=== PATIENT | male | born 1965 | race Caucasian/White ===

== ENCOUNTER 2023-05-29 11:22 | Outpatient (AMB) | payer OTHER, SELFPAY ==
[2023-05-29 11:23] VITALS: BP 100/62; PULSE 67; O2SAT 99; BMI 24.7
--- NOTE | 2023-05-29 11:23 | MHC.PC.OV ---
Vital Signs 05/29/23 11:23 Height 5 ft 8.5 in Weight 165 lb BMI 24.7 BP 100/62 Blood Pressure Location Lt brachial Position Sitting Pulse 67 Pulse Source Pulse Oximeter Pulse Oximetry (%) 99 Oxygen Delivery Method Room Air Intake Visit Reasons: pt requesting physical exam; pain in arm Finish Mixer Required: Yes Senior Training And Development Rep: Not Required per policy Accompanied by: Self / Same As Patient Allergies No Known Allergies Allergy (Verified 05/29/23 11:24) Medication List - Last Reconciled 05/29/23 by Mango Delgadillo MD No Known Home Meds Tobacco use date assessed: 05/29/23 Dental Screening Dental Screen Date: 05/29/23 Did you have a dental visit in the last 12 months?: Yes Did you have a dental problem in the last 6 months where you did not have access to dental care?: No Was dental information given to patient?: Patient has dentist HPI pt requesting physical exam; pain in arm HPI Details 57-year-old male coming in for the 1st time to be seen. Noted on the last blood work have elevated liver function test. Estuardo son interpret. R shoulder pain- deny fall or trauma- 2 years , rash on the L hand also PFSH Medical History Polysubstance abuse Social History (Updated 05/29/23 @ 12:22 by Mango Delgadillo MD) Housing: House Alcohol intake: current Patient Tobacco Use Status: Former Tobacco user Years Smoked: 1999 quit e-Cigarette/Vaping Use: Never Used Current occupational status: employed Cognitive needs: No Hearing needs: No Vision needs: No Questionnaire PHQ-9 Over the last 2 weeks, how often have you been bothered by any of the following problems? 1. Little interest or pleasure in doing things: not at all 2. Feeling down, depressed, or hopeless: not at all 3. Trouble falling or staying asleep, or sleeping too much: not at all 4. Feeling tired or having little energy: not at all 5. Poor appetite or overeating: not at all 6. Feeling bad about yourself - or that you are a failure or have let yourself or your family down: not at all 7. Trouble concentrating on things, such as reading the newspaper or watching television: not at all 8. Moving or speaking so slowly that other people could have noticed. Or the opposite - being so fidgety or restless that you have been moving around a lot more than usual: not at all 9. Thoughts that you would be better off or of hurting yourself in some way: not at all Total score: 0 Source: Developed by Drs. Keith Ortez, Agata Cortes, Cedric Walker and colleagues, with an educational nancy from [employer]. Thrive Questionnaire Date Thrive assessed: 05/29/23 I am a: Patient What is your living situation today?: I have a steady place to live Within the past 12 months, did the food you bought not last and you didn't have the money to get more?: Never true Within the past 12 months, did you worry whether your food would run out before you got money to buy more?: Never true Do you have trouble paying for medicines?: No Do you have trouble getting transportation to medical appointments?: No Do you have trouble paying your heating and electricity bill?: No Do you have trouble taking care of your child, family member or friend?: No Do you have trouble with day-to-day activities such as bathing, preparing meals, shopping, managing finances, etc.?: No Are you currently unemployed and looking for a job?: No Are you interested in more education?: No Please select the resources that you would like help with: None AUDIT C Alcohol Use Questionnaire (AUDIT-C) 1. How often do you have a drink containing alcohol?: Never Total Score: 0 DENNISE-7 AMB Questionnaire DENNISE-7 Date DENNISE - 7 assessed: 05/29/23 Feeling nervous, anxious, or on edge: 2 = More than half the days Not being able to stop or control worryin = More than half the days Worrying too much about different things: 2 = More than half the days Trouble relaxin = More than half the days Being so restless that it is hard to sit still: 2 = More than half the days Becoming easily annoyed or irritable: 0 = Not at all Feeling afraid as if something awful might happen: 0 = Not at all Total DENNISE-7 score (0-4 normal; 5-9 mild; 10-14 moderate; 15-21 severe): 10 Source: Developed by Drs. Keith Ortez, Agata Cortes, Cedric Walker and colleagues, with an educational nancy from [employer]. Review of Systems Const Denies poor appetite and Denies weakness Eyes Denies no additional complaints ENT Reports Normal hearing present, Denies dizziness, Denies nasal congestion, Denies tinnitus and Denies sore throat Card Denies chest pain, Denies syncope, Denies rapid heart rate and Denies dyspnea Resp Denies cough and Denies dyspnea GI Denies change in stool character, Reports constipation, Denies diarrhea, Denies nausea and Denies vomiting Denies dysuria and Denies urinary frequency Neuro Reports Normal hearing present, Denies confusion, Denies dizziness, Denies syncope and Denies weakness Psych Denies confusion Physical exam (Primary Care) Vital Signs: Last Vital Signs Pulse 67 05/29/23 11:23 BP 100/62 05/29/23 11:23 Pulse Ox 99 05/29/23 11:23 Oxygen Delivery Method Room Air 05/29/23 11:23 Tobacco/Smoking Status: Tobacco use Status Tobacco use date assessed 05/29/23 05/29/23 11:35 Patient Tobacco Use Status Never used Tobacco 05/29/23 11:35 e-Cigarette/Vaping Use Never Used 05/29/23 11:35 PHQ-9: PHQ-9 Score PHQ-9: Total score 0 05/29/23 11:35 Thrive Assessment: Date of Thrive Assessment Date Thrive assessed 05/29/23 05/29/23 11:35 Const General: No confusion Orientation/consciousness: No confusion HENMT Other: Bilateral impacted cerumen Head: Yes normocephalic Ears: external ears normal Face and sinus: Yes normal facial exam Mouth: moist mucous membranes Throat: Yes tonsils normal Eyes Conjunctivae: conjunctivae normal Pupils: Equal, round and reactive pupils present and Pupil accommodation reflex normal Direct Ophthalmoscopy: normal light reflex Neck Neck: No lymphadenopathy Thyroid: Thyroid normal Chest Other: Elevation of the right arm limited to 75 degrees no swelling no redness no tenderness on palpation. Chest palpation & inspection: normal inspection of the chest Resp Effort & Inspection: normal respiratory effort and no audible wheezes Auscultation: clear to auscultation bilaterally, no crackles, no wheezes and lung sounds not diminished Cardio Rate: regular rate Rhythm: regular rhythm Peripheral pulses: radial pulses present and dorsalis pedis present GI Other: Guaiac negative stools with normal prostate Palpation (GI): no masses Auscultation: normal bowel sounds and normoactive bowel sounds Male General Exam: Yes normal external exam Skin Other: Left foot interdigital area of the 4th and 5th toe has desquamation with erythema and did skin around 5 cm x 3 cm Neuro General: No confusion Cranial nerves: Yes Equal, round and reactive pupils present and Yes Normal hearing present Cognition (Neuro): normal cognition Gait exam (Neuro): Normal gait present Motor exam (neuro): 5/5 motor strength present throughout Deep tendon reflexes (DTR's): Right brachioradialis reflex intensity grade: 2+, Left brachioradialis reflex intensity grade: 2+, Right patellar reflex intensity grade: 2+ and Left patellar reflex intensity grade: 2+ Extrem General: No edema Assessment and Plan Assessment & Plan (1) Annual physical exam: Code(s): Z00.00 - Encounter for general adult medical examination without abnormal findings (2) Hepatitis C antibody positive in blood: Comment: 2003 Code(s): R76.8 - Other specified abnormal immunological findings in serum (3) Overweight (BMI 25.0-29.9): Code(s): E66.3 - Overweight (4) Generalized anxiety disorder: Code(s): F41.1 - Generalized anxiety disorder (5) Colon cancer screening: Code(s): Z12.11 - Encounter for screening for malignant neoplasm of colon (6) Hand eczema: Code(s): L30.9 - Dermatitis, unspecified (7) Right shoulder pain: Code(s): M25.511 - Pain in right shoulder (8) Cellulitis of left foot: Code(s): L03.116 - Cellulitis of left lower limb (9) Impacted cerumen of both ears: Code(s): H61.23 - Impacted cerumen, bilateral Plan: Schedule for irrigation Orders: Orders Hepatitis B Profile Today R76.8 - Other specified abnormal immunological findings in serum Hepatitis C Antibody Today R76.8 - Other specified abnormal immunological findings in serum Hepatitis C Antibody Reflex Today R76.8 - Other specified abnormal immunological findings in serum Hepatitis C Genotype Today R76.8 - Other specified abnormal immunological findings in serum Hepatitis C Viral Load Today R76.8 - Other specified abnormal immunological findings in serum Complete Blood Count Auto Diff Today R76.8 - Other specified abnormal immunological findings in serum Comprehensive Met. Panel Today R76.8 - Other specified abnormal immunological findings in serum Free T4 (Free Thyroxine) Today R76.8 - Other specified abnormal immunological findings in serum Lipid Panel Today E78.00 - Pure hypercholesterolemia, unspecified, R76.8 - Other specified abnormal immunological findings in serum Thyroid Stimulating Hormone Today R76.8 - Other specified abnormal immunological findings in serum XR shoulder RT 1V Today M25.511 - Pain in right shoulder US abdomen complete Today R76.8 - Other specified abnormal immunological findings in serum, R79.89 - Other specified abnormal findings of blood chemistry Vitamin B12 and Folate Today R76.8 - Other specified abnormal immunological findings in serum Prostate Specific Antigen Scr Today R76.8 - Other specified abnormal immunological findings in serum Referrals Gastroenterology Referral Z12.11 - Encounter for screening for malignant neoplasm of colon Medications: New clotrimazole-betamethasone 1-0.05 % 1 appl topical BID 1 week 45 grams 0RF L03.116 - Cellulitis of left lower limb amoxicillin-pot clavulanate 875-125 mg 1 tab PO BID 14 tabs 0RF L03.116 - Cellulitis of left lower limb triamcinolone acetonide 0.5% 1 appl topical BID 30 grams 0RF L30.9 - Dermatitis, unspecified Coding Level of Care Code New Pt Prev Care 40-64y(13080) Diagnoses Annual physical exam Z00.00 Hepatitis C antibody positive in blood R76.8 Overweight (BMI 25.0-29.9) E66.3 Generalized anxiety disorder F41.1 Colon cancer screening Z12.11 Hand eczema L30.9 Right shoulder pain M25.511 Cellulitis of left foot L03.116 Impacted cerumen of both ears H61.23
== END 2023-05-29 12:54 | disposition home or self-care (01) ==
PROVIDERS: PCP Internal Medicine; Visit Provider Internal Medicine
DX: Z00.00 Encounter for general adult medical examination without abnormal findings (principal); R76.8 Other specified abnormal immunological findings in serum; E66.3 Overweight; F41.1 Generalized anxiety disorder; Z12.11 Encounter for screening for malignant neoplasm of colon; L30.9 Dermatitis, unspecified; M25.511 Pain in right shoulder; L03.116 Cellulitis of left lower limb; H61.23 Impacted cerumen, bilateral
CPT/HCPCS: 99386

== ENCOUNTER 2023-06-03 12:03 | Outpatient (REF) | payer OTHER, SELFPAY ==
--- NOTE | ~2023-06-03 | XR_ITS ---
EXAMINATION: XR SHOULDER, RIGHT CLINICAL INFORMATION: Pain COMPARISON: None available. TECHNIQUE: AP external rotation, Grashey, scapular Y, and axillary views of the right shoulder. FINDINGS: Spurring, sclerosis and joint space narrowing identified glenohumeral joint. Degenerative changes noted acromioclavicular joint. No fracture or dislocation. Visualized ribs and lung are unremarkable. XR/XR shoulder RT min 2V IMPRESSION: Glenohumeral and acromioclavicular degenerative changes. No acute bony pathology.
== END 2023-06-03 12:04 | disposition home or self-care (01) ==
LOC: HO.XRAY 12:03
PROVIDERS: PCP Internal Medicine; Visit Provider Internal Medicine
DX: M25.511 Pain in right shoulder (principal)
CPT/HCPCS: 73030

== ENCOUNTER 2023-06-05 09:15 | Outpatient (REF) | payer OTHER, SELFPAY ==
[2023-06-05 09:41] LABS: MANUAL DIFF FLAG NO
[2023-06-05 10:16] LABS: Basophils Percent Auto 0.4 % (0-2); Eosinophils Absolute Auto 0.3 X10*3/uL (0.0-0.4); Eosinophils Percent Auto 5.3 % (0-4); Hematocrit 35.3 % (42.0-52.0); Hemoglobin 11.9 g/dl (14.0-18.0); Imm Gran Abs Auto 0.03 X10*3/uL (0.00-0.03); Imm Gran Pct Auto 0.6 % (0.0-0.4); Lymphocytes Absolute Auto 1.5 X10*3/uL (1.2-4.9); Lymphocytes Percent Auto 31.1 % (20-40); Mean Corpuscular HGB Conc 33.7 g/dl (31.0-36.0); Mean Corpuscular Hemoglobin 32.5 pg (27.0-33.0); Mean Corpuscular Volume 96.4 fL (80.0-98.0); Monocytes Absolute Auto 0.3 X10*3/uL (0.1-1.2); Monocytes Percent Auto 6.7 % (2-11); Neutrophils Absolute Auto 2.8 x10*3/uL (2.0-8.3); Neutrophils Percent Auto 55.9 % (45-73); Red Blood Count 3.66 X10*6/uL (4.60-5.80); Red Cell Distribution Width 14.5 % (11.0-16.0)
[2023-06-05 11:09] LABS: Alanine Aminotransferase 179 U/L (0-40); Albumin Level 3.3 g/dL (3.5-5.0); Alkaline Phosphatase 116 U/L (39-117); Anion Gap 8 (12-20); Aspartate Amino Transferase 177 U/L (5-37); Bilirubin Total 1.4 mg/dL (0.0-1.0); Blood Urea Nitrogen 19 mg/dL (9-16); Calcium 9.7 mg/dL (8.4-10.2); Carbon Dioxide 28 mmol/L (22-29); Chloride 106 mmol/L (96-108); Cholesterol 130 mg/dL (<200); Estimated Glomerular Filt Rate > 60; Glucose Random 95 mg/dL (60-115); HDL Cholesterol 31 mg/dL (>40); LDL Cholesterol Calculated 82 mg/dL (<100); Potassium 4.1 mmol/L (3.3-5.1); Sodium 138 mmol/L (135-145); Total Protein 7.2 g/dL (6.5-8.0); Triglycerides 87 mg/dL (<150)
[2023-06-05 11:16] LABS: HBS Num1 0.12 mIU/mL (0-7.99); HBc Num1 0.17 S/CO (0.00-0.79); HBsAGNum1 0.29 S/CO (0.00-0.99); Hepatitis B Core Antibody Nonreactive (Nonreactive); Hepatitis B Surface Antigen Negative (Negative); ~HepC Num1 13.64 S/CO (0.00-0.79); ~Hepatitis B Surface Antibody NONREACTIVE (Nonreactive); ~Hepatitis C Antibody Reactive (Nonreactive)
[2023-06-05 11:31] LABS: Thyroid Stimulating Hormone 2.17 uIU/mL (0.32-4.0)
[2023-06-05 11:34] LABS: Folate 12.8 ng/mL (> or = 4.0); Prostate Specific Antigen Scr 0.42 ng/mL (<0.05-4.0); Vitamin B12 987 pg/mL (200-900)
[2023-06-05 12:27] LABS: Mean Platelet Volume 13.4 fL (9.4-12.4); Platelet Count 74 X10*3/uL (160-400)
[2023-06-11 14:57] LABS: HCV Genotype LiPA 1b
== END 2023-06-05 09:16 | disposition home or self-care (01) ==
LOC: HO.LAB 09:15
PROVIDERS: PCP Internal Medicine; Visit Provider Internal Medicine
DX: R76.8 Other specified abnormal immunological findings in serum (principal); E78.00 Pure hypercholesterolemia, unspecified
CPT/HCPCS: 36415; 80053; 80061; 82607; 82746; 84153; 84439; 84443; 85025; 86704; 86706; 86803; 87340; 87522; 87902

== ENCOUNTER → 2023-08-05 09:34 | Outpatient (BNVA) | payer OTHER, SELFPAY | PROVIDERS: PCP Internal Medicine; Visit Provider Physician Assistant ==

== ENCOUNTER 2023-08-05 09:35 | Outpatient (AMB) | payer OTHER, SELFPAY ==
--- NOTE | 2023-08-05 09:35 | MHC.OFFVIS ---
Intake Vital Signs 08/05/23 09:44 Height 5 ft 8 in Weight 180 lb BMI 27.4 BP 122/72 Blood Pressure Location Lt brachial Position Sitting Pulse 80 Intake Visit Reasons: HCV Intake Note: Patient new consult for HCV. Patient cc: nauseas, no appetite, fatigue, and dizziness and denies any GI issues. Network Operations Project Manager Required: Yes Network Operations Project Manager Name: Cheri [id number] x Patricia [facility] Accompanied by: Spouse Allergies No Known Allergies Allergy (Verified 05/29/23 11:24) HPI HPI Comments History of Present Illness Details Here with his A 57 y/o male referred for HCV-treatment naive He no showed appointment in June with Dr. North He arrived 1/2 late today- needs japanese interpreter DX many years ago-he has never had treatment. He has not had any GI workup. He has never had a colonoscopy or an upper endoscopy Appetite and bowels normal-he eats at least 3 times a day, In alcohol socially, special occasions only Occasional marijuana Begin to rule out review blood work noting low albumin, low platelets, elevated liver enzymes Denies nausea, vomiting, hematemesis, hematochezia fever or chills Patient suddenly became diaphoretic, pallor, weak, nausea-dizzy, transferred from chair to the exam table-with to assist- And may attempt to get BP -anxious, his is present-she reports he has had this symptom before, unable to give any specific details Dr. Trinidad consulted-into evaluate patient- [facility] Medical History Polysubstance abuse Social History Housing: House Alcohol intake: current Patient Tobacco Use Status: Former Tobacco user Years Smoked: 1999 quit e-Cigarette/Vaping Use: Never Used Substance Use Type: Marijuana Advance Directives: No Advance Directives Information Provided: No Current occupational status: employed Cognitive needs: No Hearing needs: No Vision needs: No Review of Systems Const Details: Please review H&P for this visit All systems reviewed & are unremarkable except as noted in HPI and below Denies chills, Reports fatigue and Denies fever(s) Card Denies chest pain and Denies dyspnea Resp Denies dyspnea Endo Reports fatigue Physical Exam Vital Signs: Last Vital Signs Pulse 80 08/05/23 09:44 BP 122/72 12/04/23 09:44 BMI result Body Mass Index 27.4 Const General: cooperative, diaphoretic and ill appearing Orientation/consciousness: patient oriented x3 Limitations: language barrier Resp Effort & Inspection: normal respiratory effort Auscultation: clear to auscultation bilaterally, no rhonchi and no wheezes Cardio Rate: regular rate Rhythm: regular rhythm Heart sounds: S1 normal heart sound present and S2 normal heart sound present GI Palpation (GI): Soft to palpation and nontender Auscultation: normal bowel sounds Skin General skin exam: dry skin and pallor Neuro General: patient oriented x3 Psych Appearance: well kempt Affect: Labile affect present Attitude: cooperative Results Reviewed Results Reviewed: Review June labs -HCV, low albumin-low plts- Assessment & Plan Assessment & Plan (1) Hepatitis C antibody positive in blood: Comment: Arrived alert, pallor, likely dehydrated, became diaphoretic , weak nausea- Sent to ED alert- Code(s): R76.8 - Other specified abnormal immunological findings in serum Plan: Reschedule patient when appropriate Plan ED liborio Accompanied by RN an STEFFEN-patient alert diaphoretic Coding Level of Care Code New Pt Level 5 (13467) Diagnoses Hepatitis C antibody positive in blood R76.8 Time Spent (min) 25 Comment [id number]- japanese interpreter, then in person japanese interpreter Patricia
[2023-08-05 09:44] VITALS: BP 122/72; PULSE 80; BMI 27.4
== END 2023-08-05 10:48 | disposition home or self-care (01) ==
PROVIDERS: PCP Internal Medicine; Visit Provider Physician Assistant
DX: R76.8 Other specified abnormal immunological findings in serum (principal)
CPT/HCPCS: 99202

== ENCOUNTER 2023-08-05 09:58 | Emergency (ER) | payer OTHER, SELFPAY ==
[2023-08-05 10:32] VITALS: BP 88/58; PULSE 60; RESP 16; TEMP 36.1; O2SAT 99; BMI 25.8
--- NOTE | 2023-08-05 10:40 | ECG_ITS ---
Test Reason : HYPOTENSIVE Blood Pressure : / mmHG Vent. Rate : 054 BPM Atrial Rate : 054 BPM P-R Int : 146 ms QRS Dur : 120 ms QT Int : 414 ms P-R-T Axes : 000 184 166 degrees QTc Int : 392 ms Sinus bradycardia Right superior axis deviation Non-specific intra-ventricular conduction delay Abnormal ECG When compared with ECG of 08-SEP-2014 13:48, Questionable change in QRS axis Criteria for Septal infarct are no longer Present ST no longer elevated in Lateral leads T wave inversion now evident in Lateral leads Referred By: Generic ED Physician Electronically Signed By:BI DECKER
[2023-08-05 10:57] LABS: MANUAL DIFF FLAG NO
[2023-08-05 11:08] LABS: Basophils Percent Auto 0.6 % (0-2); Eosinophils Absolute Auto 0.1 X10*3/uL (0.0-0.4); Hematocrit 34.3 % (42.0-52.0); Hemoglobin 11.6 g/dl (14.0-18.0); Imm Gran Abs Auto 0.03 X10*3/uL (0.00-0.03); Imm Gran Pct Auto 0.9 % (0.0-0.4); Lymphocytes Absolute Auto 0.7 X10*3/uL (1.2-4.9); Lymphocytes Percent Auto 21.2 % (20-40); Mean Corpuscular HGB Conc 33.8 g/dl (31.0-36.0); Mean Corpuscular Volume 97.4 fL (80.0-98.0); Mean Platelet Volume 12.9 fL (9.4-12.4); Monocytes Absolute Auto 0.3 X10*3/uL (0.1-1.2); Monocytes Percent Auto 7.9 % (2-11); Neutrophils Absolute Auto 2.2 x10*3/uL (2.0-8.3); Neutrophils Percent Auto 66.4 % (45-73); Platelet Count 72 X10*3/uL (160-400); Red Blood Count 3.52 X10*6/uL (4.60-5.80); Red Cell Distribution Width 14.4 % (11.0-16.0); White Blood Count 3.3 X10*3/uL (4.8-10.8)
[2023-08-05 11:10] LABS: Partial Thromboplastin Time 33.3 SEC (26.0-36.4)
[2023-08-05 11:12] LABS: Anion Gap 10 (12-20); Blood Urea Nitrogen 13 mg/dL (9-16); Calcium 9.2 mg/dL (8.4-10.2); Carbon Dioxide 25 mmol/L (22-29); Chloride 107 mmol/L (96-108); Creatinine Clr Calc Pharmacy 84.8; Estimated Glomerular Filt Rate > 60; Glucose Random 94 mg/dL (60-115); Potassium 3.6 mmol/L (3.3-5.1); Sodium 138 mmol/L (135-145)
[2023-08-05 11:20] LABS: Troponin-I High Sensitivity 7.1 ng/L (<3.5-35.0)
[2023-08-05 12:20] VITALS: BP 99/66; PULSE 67; RESP 16; O2SAT 100
[2023-08-05 12:47] VITALS: BP 109/72; PULSE 56; RESP 16; TEMP 36.9; O2SAT 98
--- NOTE | 2023-08-05 13:26 | ED.WEAKNESS ---
HPI - Weakness General Chief complaint: Weakness Stated complaint: low bp Time Seen by Provider: 08/05/23 12:55 Source: patient Mode of arrival: ambulatory Limitations: language barrier History of Present Illness HPI Narrative: History obtained through historic interpreter. Patient with weeks of feeling weak and wanted to have another opinion. While getting his blood drawn, he felt hot, sweaty and his blood pressure dropped but no LOC. MD Complaint: generalized weakness Onset (ago): month(s) Duration: intermittent Severity: moderate Related Data Previous Rx's Medication Instructions Recorded amoxicillin 875 mg-potassium 1 tab PO BID #14 tabs 05/29/23 clavulanate 125 mg tablet clotrimazole-betamethasone 1 1 appl topical BID 1 week #45 grams 05/29/23 %-0.05 % topical cream triamcinolone acetonide 0.5 % 1 appl topical BID #30 grams 05/29/23 topical cream Allergies Allergy/AdvReac Type Severity Reaction Status Date / Time No Known Allergies Allergy Verified 05/29/23 11:24 Review of Systems Review of Systems: Yes all other systems are reviewed and are negative Neurologic: Denies Sensory deficit (Neuro) [facility] Past Medical History Medical History Polysubstance abuse Social History Social History Housing: House Alcohol intake: current Patient Tobacco Use Status: Former Tobacco user Years Smoked: 1999 quit e-Cigarette/Vaping Use: Never Used Substance Use Type: Marijuana Advance Directives: No Advance Directives Information Provided: No Current occupational status: employed Cognitive needs: No Hearing needs: No Vision needs: No Physical Exam Vital Signs: Vital Signs: Last Vital Signs Temp 98.5 F 08/05/23 12:47 Pulse 56 08/05/23 12:47 Resp 16 08/05/23 12:47 BP 109/72 08/05/23 12:47 Pulse Ox 98 08/05/23 12:47 O2 Del Method Room Air 08/05/23 12:47 BMI result Body Mass Index 25.8 Const: General: healthy appearing Nutritional Appearance: average body habitus Orientation/consciousness: oriented to person and patient oriented x3 Limitations: no limitations HEENT: Head: Yes normal to inspection Ears: external ears normal General nose exam: Normal external nose present Mouth: Normal oral and palatal mucosa present and oropharynx normal Throat: Yes posterior oropharynx normal Eyes: General: appearance normal, both eyes and all related structures Neck: Other: supple Neck: Yes normal visual inspection Chest: Chest palpation & inspection: normal inspection of the chest Resp: Auscultation: clear to auscultation bilaterally Cardio: Jugular venous distension: no JVD Rate: regular rate Rhythm: regular rhythm Heart sounds: S1 normal heart sound present and S2 normal heart sound present GI: Inspection: Yes normal to inspection Palpation (GI): Soft to palpation, nontender and No hepatosplenomegaly present Auscultation: normal bowel sounds : General: Yes no CVA tenderness Back/Spine/Pelvis: Back: no CVA tenderness Skin: General skin exam: no rashes or lesions noted Neuro: General: oriented to person and patient oriented x3 Cranial nerves: Yes CN's II-XII intact bilaterally Motor exam (neuro): 5/5 motor strength present throughout Sensory Exam: No Sensory deficit (Neuro) Extrem: General: Yes normal to inspection Psych: Appearance: grossly normal Course Reevaluation(s) Reevaluation #1: patient with pancytopenia for months will have him follow up with Dr. Musa Time: 13:29 Medical Decision Making Differential Diagnosis Differential Diagnoses: The differential diagnosis associated with the presentation includes (weakness, anemia, thrombocytopenia, vaso vagal episode) Admission/Observation Consideration of admission/observation: Escalation of care including admission/observation considered (upon arrival patient was considered for admission) Lab Data 08/05/23 10:47 08/05/23 10:47 Labs: Lab Results 08/05/23 Range/Units 10:47 WBC 3.3 L (4.8-10.8) X10*3/uL RBC 3.52 L (4.60-5.80) X10*6/uL Hgb 11.6 L (14.0-18.0) g/dl Hct 34.3 L (42.0-52.0) % MCV 97.4 (80.0-98.0) fL MCH 33.0 (27.0-33.0) pg MCHC 33.8 (31.0-36.0) g/dl RDW 14.4 (11.0-16.0) % Plt Count 72 L (160-400) X10*3/uL MPV 12.9 H (9.4-12.4) fL Immature Gran % (Auto) 0.9 H (0.0-0.4) % Neut % (Auto) 66.4 (45-73) % Lymph % (Auto) 21.2 (20-40) % [place] % (Auto) 7.9 (2-11) % Eos % (Auto) 3.0 (0-4) % Baso % (Auto) 0.6 (0-2) % Lymph # (Auto) 0.7 L (1.2-4.9) X10*3/uL [place] # (Auto) 0.3 (0.1-1.2) X10*3/uL Eos # (Auto) 0.1 (0.0-0.4) X10*3/uL Baso # (Auto) 0.0 (0.0-0.2) X10*3/uL Abs Immat Gran (auto) 0.03 (0.00-0.03) X10*3/uL Absolute Neuts (auto) 2.2 (2.0-8.3) x10*3/uL Absolute Nucleated RBC 0.000 (0.0-0.012) X10*3/uL Nucleated RBC % (auto) 0.0 (0.0-0.2) /100WBC APTT 33.3 (26.0-36.4) SEC Sodium 138 (135-145) mmol/L Potassium 3.6 (3.3-5.1) mmol/L Chloride 107 (96-108) mmol/L Carbon Dioxide 25 (22-29) mmol/L Anion Gap 10 L (12-20) BUN 13 (9-16) mg/dL Creatinine 0.98 (0.5-1.4) mg/dL Estim Creat Clear Calc 84.8 Estimated GFR > 60 Random Glucose 94 (60-115) mg/dL Calcium 9.2 (8.4-10.2) mg/dL Troponin I High Sens 7.1 (<3.5-35.0) ng/L Independent Interpretation I performed an independent interpretation of an: EKG (sinus 55, no st or twave changes) External Record Review External record reviewed: Prior outpatient labs Tests considered The following testing was considered but not selected: head Ct considered but patient non focal Social Determinants Patient?s care significantly limited by Social Determinants of Health including: Alcoholism and drug addiction in family (continued alcohol and drug use) Discharge Plan Discharge Clinical Impression: Pancytopenia, Weakness Patient Disposition: Home, Self-Care Instructions: Pancytopenia (DC), Weakness (ED) Prescriptions: No Action clotrimazole-betamethasone 1-0.05 % cream 1 appl topical BID 7 Days Qty: 45 0RF amoxicillin-pot clavulanate 875-125 mg tablet 1 tab PO BID Qty: 14 0RF triamcinolone acetonide 0.5 % cream 1 appl topical BID Qty: 30 0RF Referrals: Diogenes Musa MD [Physician] - 1 week Po,Mango Acosta MD [Primary Care Provider] - 5 days
--- NOTE | 2023-08-05 13:36 | PC.NURSE ---
ambulating with steady gait, denies any dizziness
== END 2023-08-05 13:37 | disposition home or self-care (01) ==
PROVIDERS: Emergency Provider Emergency Medicine; PCP Internal Medicine
DX: D61.818 Other pancytopenia (principal); R53.1 Weakness; Z79.899 Other long term (current) drug therapy; Z87.891 Personal history of nicotine dependence
CPT/HCPCS: 36415; 80048; 84484; 85025; 85730; 93005; 99202; 99283; 99284

== ENCOUNTER → 2023-08-05 10:40 | Outpatient (BNV) | payer OTHER, SELFPAY | PROVIDERS: Emergency Provider Emergency Medicine; PCP Internal Medicine; Visit Provider Internal Medicine | DX: R00.1 Bradycardia, unspecified (principal); R94.31 Abnormal electrocardiogram [ECG] [EKG] | CPT/HCPCS: 93010 ==